=== PATIENT | male | born 1965 | race Caucasian/White ===

== ENCOUNTER 2024-09-11 06:13 | Day surgery (SDC) | payer OTHER, SELFPAY ==
[2024-08-29 13:28] VITALS: BMI 29.0
[2024-08-29 13:57] LABS: Hemoglobin 17.6 g/dL (13.0-18.0); Mean Corp Hgb Conc. 33.8 g/dL (33.0-37.0); Mean Corpuscular Hgb 30.6 pg (27.0-31.0); Mean Corpuscular Volume 90.3 fL (80.0-94.0); Mean Platelet Volume 10.2 fL (7.4-10.4); Platelet Count 310 10^3/uL (130-400); Red Blood Cell Count 5.76 10^6/uL (4.70-6.10); Red Cell Dist. Width 12.4 % (11.5-14.5); White Blood Cell Count 8.7 10^3/uL (4.8-10.8)
[2024-08-29 14:52] LABS: Blood Urea Nitrogen 20 mg/dl (9-20); Calcium 9.3 mg/dl (8.4-10.2); Carbon Dioxide 25 mmol/L (22-30); Chloride 103 mmol/L (98-107); Estimated Creatinine Clearance 91 ml/min; Glucose 80 mg/dl (70-99); Potassium 4.3 mmol/L (3.5-5.1); Sodium 140 mmol/L (135-145); eGFR > 60.00
[2024-09-11] VITALS (9 sets, daily range): BP systolic 125–156; BP diastolic 83–99; BMI 29.0
[2024-09-11] MEDS: TYLENOL 1000 MG PO (10:59)
[2024-09-11] MEDS: CELEBREX 200 MG PO (10:59)
[2024-09-11] MEDS: NORMOSOL-R/PLASMALYTE-A 1000 IV (10:59)
== END 2024-09-11 15:42 | disposition home or self-care (01) ==
LOC: SDS 06:13
PROVIDERS: ATTENDING PHYSICIAN Specialist; FAMILY PHYSICIAN Nurse Practitioner Family
DX: M75.101 Unspecified rotator cuff tear or rupture of right shoulder, not specified as traumatic (principal)
CPT/HCPCS: 29827; 29824; 36415; 80048; 85027; 93005; C1713

== ENCOUNTER 2025-04-30 06:18 | Day surgery (SDC) | payer OTHER, SELFPAY ==
[2025-04-10 08:23] LABS: ALT (SGPT) 38 U/L (0-50); AST (SGOT) 41 U/L (17-59); Albumin 4.8 g/dl (3.5-5.0); Alkaline Phosphatase 62 U/L (38-126); Blood Urea Nitrogen 14 mg/dl (9-20); Calcium 9.6 mg/dl (8.4-10.2); Carbon Dioxide 22 mmol/L (22-30); Chloride 107 mmol/L (98-107); Glucose 89 mg/dl (70-99); Potassium 4.2 mmol/L (3.5-5.1); Sodium 139 mmol/L (135-145); Total Protein 7.2 g/dl (6.3-8.2); eGFR > 60.00
[2025-04-10 13:43] VITALS: BMI 30.1
[2025-04-30] VITALS (9 sets, daily range): BP systolic 120–155; BP diastolic 81–88; BMI 30.1
[2025-04-30] MEDS: TYLENOL 1000 MG PO (08:16)
[2025-04-30] MEDS: CELEBREX 200 MG PO (08:17)
[2025-04-30] MEDS: NORMOSOL-R/PLASMALYTE-A 1000 IV (08:20)
== END 2025-04-30 11:53 | disposition home or self-care (01) ==
LOC: SDS 06:18
PROVIDERS: ATTENDING PHYSICIAN Specialist; FAMILY PHYSICIAN Nurse Practitioner Family
DX: M75.102 Unspecified rotator cuff tear or rupture of left shoulder, not specified as traumatic (principal); M75.42 Impingement syndrome of left shoulder
CPT/HCPCS: 29827; 36415; 80053